=== PATIENT | male | born 1995 | race Caucasian/White ===

== ENCOUNTER 2016-12-28 14:26 | Emergency (ER) | payer SELFPAY ==
[~2016-12-28] VITALS: Ht 172.7 cm; Wt 65.0 kg
[2016-12-28 14:27] VITALS: BP 134/89; PULSE 77; RESP 16; TEMP 98.1; O2SAT 98
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
[2016-12-28] MEDS ORDERED: hydrOXYzine HCL 25 MG TAB PO ONE (15:15)
[2016-12-28] MEDS ORDERED: DEXAMETHASONE SOD PHOS 4 MG/ML VIAL IM ONE (15:15)
== END 2016-12-28 15:56 | disposition home or self-care (01) ==
LOC: EDTENT 14:26
DX: A63.0 Anogenital (venereal) warts (principal); R21 Rash and other nonspecific skin eruption
CPT/HCPCS: 96372; 99283; J1100